=== PATIENT | male | born 1995 | race African-American/Black ===

== ENCOUNTER 2019-03-12 00:01 | Emergency (ER) | payer OTHER ==
[~2019-03-12] VITALS: Ht 182.9 cm; Wt 79.5 kg
[2019-03-12] MEDS ORDERED: KETOROLAC TROMETHAMINE 60 MG/2 ML VIAL IM ONE (02:00)
[2019-03-12 03:00] VITALS: BP 132/80
== END 2019-03-12 03:07 | disposition home or self-care (01) ==
LOC: EMS 00:05
DX: S91.202A Unspecified open wound of left great toe with damage to nail, initial encounter (principal); W21.05XA Struck by basketball, initial encounter; Y93.67 Activity, basketball; Y92.89 Other specified places as the place of occurrence of the external cause; Y99.8 Other external cause status

== ENCOUNTER 2019-05-13 11:34 | Emergency (ER) | payer OTHER ==
[~2019-05-13] VITALS: Ht 190.5 cm; Wt 79.5 kg
[2019-05-13 13:54] VITALS: BP 123/79
== END 2019-05-13 13:56 | disposition home or self-care (01) ==
LOC: EMS 11:35
DX: S76.112A Strain of left quadriceps muscle, fascia and tendon, initial encounter (principal); W01.0XXA Fall on same level from slipping, tripping and stumbling without subsequent striking against object, initial encounter; Y93.67 Activity, basketball; Y92.89 Other specified places as the place of occurrence of the external cause; Y99.8 Other external cause status

== ENCOUNTER 2019-12-29 16:38 | Emergency (ER) | payer OTHER ==
[~2019-12-29] VITALS: Ht 182.9 cm; Wt 79.5 kg
[2019-12-29 16:38] VITALS: BP 142/91
[2019-12-29] MEDS ORDERED: IBUPROFEN 800 MG TABLET PO ONE (17:00)
[2019-12-29] MEDS ORDERED: LIDOCAINE 1% 10 ML VIAL INJ ONE (17:45)
== END 2019-12-29 19:34 | disposition home or self-care (01) ==
LOC: EMS 16:38
DX: S62.617A Displaced fracture of proximal phalanx of left little finger, initial encounter for closed fracture (principal); W50.0XXA Accidental hit or strike by another person, initial encounter; Y93.67 Activity, basketball; Y92.310 Basketball court as the place of occurrence of the external cause; Y99.8 Other external cause status
CPT/HCPCS: 26770; 73140; 99284; J3490

== ENCOUNTER 2021-02-12 19:41 | Emergency (ER) | payer MEDICAID, OTHER ==
[~2021-02-12] VITALS: Ht 182.9 cm; Wt 79.5 kg
[2021-02-12 23:50] VITALS: BP 132/65
== END 2021-02-13 00:09 | disposition home or self-care (01) ==
LOC: EMS 19:47
DX: S82.822A Torus fracture of lower end of left fibula, initial encounter for closed fracture (principal); W21.05XA Struck by basketball, initial encounter; Y93.67 Activity, basketball; Y92.89 Other specified places as the place of occurrence of the external cause; Y99.8 Other external cause status
CPT/HCPCS: 29515; 99283

== ENCOUNTER 2021-03-22 19:12 | Emergency (ER) | payer OTHER ==
[~2021-03-22] VITALS: Ht 182.9 cm; Wt 77.3 kg
[2021-03-22] MEDS ORDERED: LIDOCAINE 1% 10 ML VIAL SQ ONE (19:45)
[2021-03-22] MEDS ORDERED: PERTUSS(ACELL),DIPH,TET VAC/PF 0.5 ML SYRINGE IM. ONE (20:45)
[2021-03-22 21:01] VITALS: BP 126/84
== END 2021-03-22 21:21 | disposition home or self-care (01) ==
LOC: EMS 19:14
DX: S01.81XA Laceration without foreign body of other part of head, initial encounter (principal); Y04.0XXA Assault by unarmed brawl or fight, initial encounter; Y93.89 Activity, other specified; Y92.89 Other specified places as the place of occurrence of the external cause; Y99.8 Other external cause status
CPT/HCPCS: 12011; 70100; 90471; 90715; 99283; J3490

== ENCOUNTER 2021-04-06 13:08 | Emergency (ER) | payer OTHER ==
[~2021-04-06] VITALS: Ht 188 cm; Wt 77.3 kg
[2021-04-06 13:10] VITALS: BP 130/67
== END 2021-04-06 14:21 | disposition home or self-care (01) ==
LOC: EMS 13:12
DX: S01.81XD Laceration without foreign body of other part of head, subsequent encounter (principal); X58.XXXD Exposure to other specified factors, subsequent encounter
CPT/HCPCS: 99281; Z7502

== ENCOUNTER 2022-03-08 05:05 | Emergency (ER) | payer OTHER ==
[~2022-03-08] VITALS: Ht 182.9 cm; Wt 79.5 kg
[2022-03-08 05:29] VITALS: BP 119/82
== END 2022-03-08 06:23 | disposition home or self-care (01) ==
LOC: EMS 05:06
DX: S61.216A Laceration without foreign body of right little finger without damage to nail, initial encounter (principal); W45.8XXA Other foreign body or object entering through skin, initial encounter; Y93.89 Activity, other specified; Y92.89 Other specified places as the place of occurrence of the external cause; Y99.8 Other external cause status
CPT/HCPCS: 12001; 99282; Z7502